=== PATIENT | female | born 1945 | race Caucasian/White ===

== ENCOUNTER 2022-04-10 15:22 | Emergency (ER) | payer MEDICARE, SELFPAY ==
--- NOTE | ~2022-04-10 | XR_ITS ---
EXAMINATION: XR chest 2V DATE: 04/10/2022 16:20 INDICATION: Atrial fibrillation TECHNIQUE: AP and lateral views of the chest are obtained. COMPARISON: 09/01/2019 FINDINGS: There is a possible nodule of the left lung base. No pleural effusion or pneumothorax. The cardiomediastinal silhouette is normal. There is moderate thoracic spondylosis. There has been interv al insertion of what appears to be an ASD closure device. IMPRESSION: 1. No acute cardiopulmonary abnormality. 2. Possible nodule of the left lung base. Follow-up with nonemergent CT of the chest is recommended. Reviewed, dictated and finalized at location A.
[2022-04-10 15:38] VITALS: BP 106/61; PULSE 152; RESP 16; TEMP 36.2
[2022-04-10 15:57] VITALS: BP 135/102; PULSE 157; RESP 30; O2SAT 98
--- NOTE | 2022-04-10 16:01 | ECG_ITS ---
Measurements Intervals [place] Rate: 164 P: DE: 0 QRS: -10 QRSD: 85 T: 59 QT: 278 QTc: 460 Interpretive Statements ATRIAL FIBRILLATION WITH RAPID VENTRICULAR RESPONSE LATERAL ST DEPRESSION, CONSIDER ISCHEMIA CRITICAL TEST RESULT COMPARED TO ECG 09/02/2019 08:16:32 ATRIAL FIBRILLATION NOW PRESENT ST DEPRESSION IS NOW PRESENT Electronically Signed On 04-10-2022 19:43:52 CDT by Giovanna Hunter M.D.
[2022-04-10 16:03] VITALS: PULSE 170
[2022-04-10 16:14] LABS: Basophils Percent Auto 0.2 % (0.2-1.2); Hematocrit 41.1 % (37.0-47.0); Hemoglobin 13.3 g/dL (12.0-15.0); Lymphocytes Absolute Auto 0.67 K/mm3 (0.9-3.2); Lymphocytes Percent Auto 3.3 % (18.3-44.2); Mean Corpuscular HGB Conc 32.4 g/dl (32-36); Mean Corpuscular Volume 86.5 fl (80-100); Mean Platelet Volume 10.2 fl (7.4-10.4); Monocytes Absolute Auto 1.6 K/mm3 (0.1-0.6); Neutrophils Absolute Auto 17.8 K/mm3 (1.3-6.7); Neutrophils Percent Auto 87.5 % (45.5-73.1); Platelet Count Result 197 k/mm3 (150-375); Red Blood Count 4.75 M/mm3 (4.2-5.4); Red Cell Distribution Width 14.3 % (11.5-14.5); White Blood Count 20.4 K/mm3 (4.5-10.0)
[2022-04-10 16:21] LABS: Alanine Aminotransferase 16 U/L (6-35); Albumin Level 4.1 g/dL (3.5-5.1); Alkaline Phosphatase 114 U/L (38-126); Anion Gap 9 mmol/L (8-16); Aspartate Amino Transferase 27 U/L (14-36); Bilirubin,Total 1.6 mg/dL (0.2-1.3); Blood Urea Nitrogen 18 mg/dL (7-17); Calcium 9.3 mg/dL (8.4-10.2); Carbon Dioxide 21 mmol/L (22-30); Chloride 105 mmol/L (98-107); Estimated CRCL calculation 61 ml/min; Estimated Glomerular Filt Rate 60; Glucose 168 mg/dL (65-110); Lipase 16 U/L (23-300); Potassium 3.6 mmol/L (3.4-5.0); Sodium 135 mmol/L (137-145)
[2022-04-10] MEDS: SODIUM CHLORIDE 0.9% IV 1,000 ML 999 ML IV CONT (16:30)
[2022-04-10 16:33] LABS: INR 1.2; Troponin I < 0.012 ng/mL (0.000-0.034)
[2022-04-10 16:34] LABS: Partial Thromboplastin Time 31.7 SECONDS (22.3-36.8)
--- NOTE | 2022-04-10 16:54 | ED.GENADULT ---
HPI - General Adult General Chief complaint: Unspecified <Aishwarya Baker III, DO - Last Filed: 04/10/22 18:54> Stated complaint: LOW BP- INGESTED DISC IN PILL BOTTLE' <Aishwarya Abreuver III, DO - Last Filed: 04/10/22 18:54> Time Seen by Provider: 04/10/22 16:05 <Aishwarya Baker III, DO - Last Filed: 04/10/22 18:54> History of Present Illness HPI narrative: Pt started on Augmentin by PCP yesterday for UTI and sinusitis. Pt accidentally took dessicant in bottle. Pt states lst night she was nauseated and vomited a little but had numerous episodes of diarrhea. Today she feels like her heart is racing. Pt denies CP or SOB or edema. <Aishwarya Baker III, DO - Last Filed: 04/10/22 18:54> Related Data Home medications: Home Medications Medication Instructions Recorded Confirmed diazepam 5 mg tablet 5 mg PO HS 09/01/19 09/01/19 <Aishwarya Baker III, DO - Last Filed: 04/10/22 18:54> Allergies/adverse reactions: Allergies Allergy/AdvReac Type Severity Reaction Status Date / Time No Known Allergies Allergy Verified 04/10/22 16:00 <Aishwarya Baker III, DO - Last Filed: 04/10/22 18:54> Review of Systems Review of Systems: All systems reviewed & are unremarkable except as noted in HPI and below <Aishwarya Abreuver III, DO - Last Filed: 04/10/22 18:54> PMFSH Past Medical History Medical History: Medical History (Updated 04/11/22 @ 00:00 by Background Dagael) Anxiety History of skin cancer IBS (irritable bowel syndrome) Shingles <Aishwarya Abreuver III, DO - Last Filed: 04/10/22 18:54> Surgical History Surgical History: Surgical History History of appendectomy History of hysterectomy <Aishwarya Abreuver III, DO - Last Filed: 04/10/22 18:54> Family History Family History: Family History Mother Cerebrovascular accident Sibling Breast cancer <Aishwarya Herve Baker III, DO - Last Filed: 04/10/22 18:54> Social History Social History: Social History Smoking status: Never smoker Alcohol intake: current Drinks per week: 4 Substance use: never Gender identity (if verbalized by the patient): Female Spiritual care concerns: No Agree to blood products: Yes <Aishwarya Herve Baker III, DO - Last Filed: 04/10/22 18:54> Exam Const: General: cooperative, healthy appearing, comfortable and no acute distress <Aishwarya Herve Baker III, DO - Last Filed: 04/10/22 18:54> Orientation/consciousness: patient oriented x3 <Aishwarya Herve Baker III, DO - Last Filed: 04/10/22 18:54> Limitations: no limitations <Aishwarya Herve Baker III, DO - Last Filed: 04/10/22 18:54> HENMT: Head: normal to inspection <Aishwarya Herve Baker III, DO - Last Filed: 04/10/22 18:54> Eyes: General: appearance normal, both eyes and all related structures <Aishwarya Herve Baker III, DO - Last Filed: 04/10/22 18:54> Neck: Neck: normal visual inspection, full ROM, no lymphadenopathy and no meningeal signs <Aishwarya Herve Baker III, DO - Last Filed: 04/10/22 18:54> Resp: Effort & Inspection: normal respiratory effort and able to speak in complete sentences <Aishwarya Herve Baker III, DO - Last Filed: 04/10/22 18:54> Auscultation: clear to auscultation bilaterally <Aishwarya Herve Baker III, DO - Last Filed: 04/10/22 18:54> Cardio: Jugular venous distension: no JVD <Aishwarya Herve Baker III, DO - Last Filed: 04/10/22 18:54> Rate: tachycardic <Aishwarya Herve Baker III, DO - Last Filed: 04/10/22 18:54> Rhythm: abnormal rhythm <Aishwarya Herve Baker III, DO - Last Filed: 04/10/22 18:54> GI: Inspection: normal to inspection <Aishwarya Herve Baker III, DO - Last Filed: 04/10/22 18:54> GI Palp: Yes Soft to palpation <Aishwarya Herve Baker III, DO - Last Filed: 04/10/22 18:54> Percussion: Yes normal to percussion <Aishwarya Herve Baker III, DO - Last Fi
--- NOTE | 2022-04-10 17:07 | PC.NURSE ---
Per Batsheva, pharmacist, at [facility] that patient could potentially have experienced some nausea last night after ingestion of desiccant tablet, but there would be no delayed reactions such as tachycardia or hypotension.
[2022-04-10 18:21] VITALS: BP 112/72; PULSE 122; RESP 14; O2SAT 99
[2022-04-10] MEDS: dilTIAZem HCl INJ 25 MG/5 ML VIAL 10 MG IV PUSH ×2 (19:26→20:41)
[2022-04-10 19:50] LABS: Troponin I < 0.012 ng/mL (0.000-0.034)
[2022-04-10 20:41] VITALS: PULSE 122
[2022-04-10] MEDS: METOPROLOL TARTRATE 12.5 MG TABLET PO (20:41)
[2022-04-10 21:37] LABS: Appearance Urine Clear (Clear); Bilirubin Urine Negative (Negative); Blood Urine 2+ (Negative); Color Urine Yellow (Yellow); Glucose Urine UA Negative (Negative); Ketones Urine Trace mg/dL (Negative); Leukocyte Esterase Ur Negative LEU/UL (Negative); Nitrate Urine Negative (Negative); Protein Urine Negative (Negative); Urobilinogen Urine 0.2 mg/dL (<2.0)
[2022-04-10] MEDS: SODIUM CHLORIDE 0.9% IV 500 ML 999 ML IV CONT (21:53)
[2022-04-10 21:59] LABS: Bacteria Urine Trace /hpf; Squamous Epithelial Cell Urine Rare /hpf (Few); WBC Urine 0-3 /hpf
[2022-04-10 22:04] LABS: Add Urine Microscopic? YES
[2022-04-10 22:59] VITALS: BP 90/57; PULSE 63; RESP 18; O2SAT 97
== END 2022-04-10 23:00 | disposition home or self-care (01) ==
PROVIDERS: Emergency Medicine; Emergency Provider Emergency Medicine; PCP Internal Medicine
DX: T65.891A Toxic effect of other specified substances, accidental (unintentional), initial encounter (principal); R11.2 Nausea with vomiting, unspecified; E86.0 Dehydration; I48.91 Unspecified atrial fibrillation; K58.9 Irritable bowel syndrome, unspecified; Z85.828 Personal history of other malignant neoplasm of skin; N39.0 Urinary tract infection, site not specified; J32.9 Chronic sinusitis, unspecified
CPT/HCPCS: 36415; 71046; 80053; 81001; 83690; 84484; 85025; 85610; 85730; 93005; 96361; 96374; 96376; 99284; A9270; J7030; J7040